=== PATIENT | female | born 1960 | race Caucasian/White ===

== ENCOUNTER 2025-04-08 12:33 | Outpatient (CLI) | payer OTHER | END 2025-04-08 12:34 | disposition home or self-care (01) | LOC: CSHWCC 12:33 | PROVIDERS: ATTEND Nurse Practitioner Family | DX: L89.623 Pressure ulcer of left heel, stage 3 (principal) | CPT/HCPCS: 97597; G0463; 99213 ==

== ENCOUNTER 2025-04-29 10:42 | Outpatient (CLI) | payer OTHER | END 2025-04-29 10:43 | disposition home or self-care (01) | LOC: CSHWCC 10:42 | PROVIDERS: ATTEND Nurse Practitioner Family | DX: L89.623 Pressure ulcer of left heel, stage 3 (principal) | CPT/HCPCS: 11042 ==

== ENCOUNTER 2025-05-06 11:08 | Outpatient (CLI) | payer OTHER | END 2025-05-06 11:09 | disposition home or self-care (01) | LOC: CSHWCC 11:08 | PROVIDERS: ATTEND Nurse Practitioner Family | DX: L89.623 Pressure ulcer of left heel, stage 3 (principal) | CPT/HCPCS: 11042 ==

== ENCOUNTER 2025-05-13 11:13 | Outpatient (CLI) | payer OTHER | END 2025-05-13 11:14 | disposition home or self-care (01) | LOC: CSHWCC 11:13 | PROVIDERS: ATTEND Nurse Practitioner Family | DX: L89.623 Pressure ulcer of left heel, stage 3 (principal) | CPT/HCPCS: 11042 ==

== ENCOUNTER 2025-05-20 10:35 | Outpatient (CLI) | payer OTHER | END 2025-05-20 10:36 | disposition home or self-care (01) | LOC: CSHWCC 10:35 | PROVIDERS: ATTEND Nurse Practitioner Family | DX: L89.623 Pressure ulcer of left heel, stage 3 (principal) | CPT/HCPCS: 11042 ==

== ENCOUNTER 2025-06-10 10:46 | Outpatient (CLI) | payer OTHER | END 2025-06-10 10:47 | disposition home or self-care (01) | LOC: CSHWCC 10:46 | PROVIDERS: ATTEND Nurse Practitioner Family | DX: L89.623 Pressure ulcer of left heel, stage 3 (principal) | CPT/HCPCS: 97597 ==